=== PATIENT | male | born 1990 | race Caucasian/White ===

== ENCOUNTER → 2016-11-04 | Outpatient (CLI) | payer OTHER ==
[~2016-11-04] MED LIST: ASC400 PO; BNT10 PO; CPR500 PO; LRT5 PO; METR-163 PO; NAPR1TAB9 PO; PRED10TA PO; TRAM-10 PO
[2016-11-04 12:25] LABS: BASO % 0.2 %; BASO ABS # 0.01 K/uL (0-0.2); COMPLETE YES; EOS % 4.8 %; HEMATOCRIT 44.1 % (42-52); LYMPH % 33.9 %; LYMPH ABS # 1.54 K/uL (1.2-3.4); MEAN CORPUSCULAR HGB CONC 33.3 g/dl (32-36); MEAN PLATELET VOLUME 10.2 fL (7.4-10.4); MONO % 7.3 %; NEUT % 53.8 %; PLATELET COUNT 289 K/uL (130-400); RED BLOOD COUNT 5.07 M/uL (4.7-6.1); WHITE BLOOD COUNT 4.54 K/uL (4.8-10.8)
[2016-11-04 12:51] LABS: ALB/GLOB RATIO 1.1 (0.9-2); ALKALINE PHOSPHATASE 69 U/L (45-117); ALT/SGPT 55 U/L (12-78); AST/SGOT 32 U/L (15-37); BLOOD UREA NITROGEN 7 mg/dl (7-18); BUN/CREATININE RATIO 7.8 (10-20); CALCIUM 9.4 mg/dl (8.5-10.1); CARBON DIOXIDE 31 mmol/L (21-32); CHLORIDE 108 mmol/L (98-107); CREATININE 0.93 mg/dl (0.60-1.40); GLUCOSE 88 mg/dl (70-99); SODIUM 141 mmol/L (136-145)
[2016-11-04 12:55] LABS: C-REACTIVE PROTEIN < 0.29 mg/dl (0-0.29)
[2016-11-06 14:15] LABS: QUANTIF TB AG-NIL <0.00 IU/ML; QUANTIFERON NIL 0.05 IU/ML
== END | disposition home or self-care (01) ==
LOC: C.LAB1850 09:44
PROVIDERS: ATTEND Registered Nurse
DX: K50.80 Crohn's disease of both small and large intestine without complications (principal); K62.5 Hemorrhage of anus and rectum

== ENCOUNTER → 2017-01-15 | Outpatient (CLI) | payer OTHER ==
--- NOTE | 2017-01-15 08:22 | DIAGNOSTIC IMAGING REPORT ---
(TESTICULAR) SCROTUM-CONT CLINICAL HISTORY: 26 years-old Male presenting with N50.812 Left testicular [id number]. TECHNIQUE: Real-time grayscale and color and spectral Doppler ultrasound imaging of the scrotum was performed. COMPARISON: None. FINDINGS: Right testis: Normal echogenicity and echotexture. Testis measures 4.8 x 3.3 x 2.2 cm. Normal color Doppler flow and arterial and venous waveforms in the testicular parenchyma. Epididymal head normal. Small hydrocele. Small varicocele. Left testis: Normal echogenicity and echotexture. Testis measures 4.7 x 3.1 x 2.2 cm. Normal color Doppler flow and arterial and venous waveforms in the testicular parenchyma. Epididymal head normal. Small hydrocele. Small varicocele. Symmetric perfusion of the testes. IMPRESSION: 1. No evidence of testicular torsion. 2. Small bilateral hydroceles. 3. Small bilateral varicoceles. Electronically signed by: Raul Pierre M.D. 01/15/2017 8:21 AM Dictated Date/Time: 01/15/2017 8:18 AM
== END | disposition home or self-care (01) ==
LOC: C.ULTR 07:43
PROVIDERS: ATTEND Internal Medicine
DX: N50.812 Left testicular pain (principal); N43.3 Hydrocele, unspecified; I86.1 Scrotal varices